=== PATIENT | male | born 2000 | race Caucasian/White ===

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

== ENCOUNTER 2021-09-19 21:16 | Outpatient (REF) | payer MEDICAID, SELFPAY ==
[2021-09-19 21:51] LABS: Abs Immature Grans 0.02 10^3/uL (0.0-0.06); Absolute Basophil Count 0.07 10^3/uL (0.0-0.2); Absolute Eosinophil Count 0.26 10^3/uL (0.0-0.7); Absolute Neutrophil Count 4.33 10^3/uL (1.2-6.7); Basophils % 0.9; Eosinophils % 3.2; HCT 42.1 % (40.0-50.0); HGB 13.8 g/dL (13.5-17.5); Immature Grans % 0.2; Lymphocytes % 32.2; MCH 30.1 pg (27.0-33.0); MCHC 32.8 % (32.0-36.0); MCV 91.7 fL (80-95); MPV 13.5 fL (8.0-11.0); Monocytes % 9.9; Neutrophils % 53.6; Nucleated RBC 0 %; RBC 4.59 10^6/uL (4.36-5.78); RDW 13.1 % (11.8-14.1); WBC 8.08 10^3/uL (4.4-10.8)
[2021-09-19 22:36] LABS: ALT 466 U/L (16-63); AST 243 U/L (15-37); Albumin 3.8 g/dL (3.4-5.0); Alkaline Phosphatase 52 U/L (46-116); Anion Gap 8.2 mmol/L (3-11); BUN 12 mg/dL (7-18); Bilirubin, Total 0.4 mg/dL (0.2-1.0); CO2 28.8 mmol/L (21.0-32.0); Calcium 9.1 mg/dL (8.5-10.1); Calculated LDL 42 mg/dL (<100); Chloride 109 mmol/L (98-107); Cholesterol 102 mg/dL (<200); GGT 209 U/L (15-85); Glucose 113 mg/dL (74-106); HDL Cholesterol 39 mg/dL (40-60); Potassium 4.2 mmol/L (3.5-5.1); Sodium 146 mmol/L (136-145); Total Protein 6.8 g/dL (6.4-8.2); Triglyceride 108 mg/dL (<150)
[2021-09-19 22:42] LABS: Platelet Count 189 10^3/uL (130-400)
[2021-09-21 10:41] LABS: HIV-1/2 Ag & Ab Screen Negative (Negative)
[2021-09-23 09:34] LABS: HBs Antibody, Quant <3.1 mIU/mL (See Note); Hepatitis B Surface Ab Negative (See Note)
[2021-09-23 11:06] LABS: Hepatitis A Antibody IgM Negative (Negative); Hepatitis B Core Antibody Negative (Negative); Hepatitis B surface Ag Negative (Negative); Hepatitis C Ab w Rflx HCV PCR Negative (Negative)
== END 2021-09-19 21:17 | disposition home or self-care (01) ==
LOC: NCHCN 21:16
PROVIDERS: PCP Nurse Practitioner Family; Visit Provider Registered Nurse
DX: F10.10 Alcohol abuse, uncomplicated (principal); E66.9 Obesity, unspecified; Z13.220 Encounter for screening for lipoid disorders; Z11.59 Encounter for screening for other viral diseases; Z11.4 Encounter for screening for human immunodeficiency virus [HIV]; Z01.84 Encounter for antibody response examination; Z00.00 Encounter for general adult medical examination without abnormal findings
CPT/HCPCS: 80053; 80061; 86704; 86706; 86709; 86803; 87340; 87389; 82977; 85025

== ENCOUNTER 2021-10-01 16:32 | Outpatient (REF) | payer MEDICAID, SELFPAY ==
[2021-10-01 21:16] LABS: Abs Immature Grans 0.01 10^3/uL (0.0-0.06); Absolute Basophil Count 0.08 10^3/uL (0.0-0.2); Absolute Lymphocyte Count 2.55 10^3/uL (1.2-3.4); Absolute Monocyte Count 0.61 10^3/uL (0.1-0.8); Absolute Neutrophil Count 4.98 10^3/uL (1.2-6.7); Basophils % 0.9; Eosinophils % 2.4; HCT 49.1 % (40.0-50.0); HGB 15.9 g/dL (13.5-17.5); Immature Grans % 0.1; Lymphocytes % 30.2; MCH 29.6 pg (27.0-33.0); MCHC 32.4 % (32.0-36.0); MCV 91.4 fL (80-95); MPV 12.1 fL (8.0-11.0); Monocytes % 7.2; Neutrophils % 59.2; Nucleated RBC 0 %; Platelet Count 277 10^3/uL (130-400); RBC 5.37 10^6/uL (4.36-5.78); RDW 12.8 % (11.8-14.1); RDW-SD 43.5 fL; WBC 8.43 10^3/uL (4.4-10.8)
== END 2021-10-01 16:33 | disposition home or self-care (01) ==
LOC: LBN 16:32
PROVIDERS: PCP Nurse Practitioner Family
DX: Z79.899 Other long term (current) drug therapy (principal)
CPT/HCPCS: 85025

== ENCOUNTER 2021-10-09 12:00 | Outpatient (REF) | payer MEDICAID, SELFPAY ==
[2021-10-09 22:38] LABS: Abs Immature Grans 0.04 10^3/uL (0.0-0.06); Absolute Basophil Count 0.12 10^3/uL (0.0-0.2); Absolute Eosinophil Count 0.22 10^3/uL (0.0-0.7); Absolute Lymphocyte Count 2.93 10^3/uL (1.2-3.4); Absolute Monocyte Count 0.68 10^3/uL (0.1-0.8); Absolute Neutrophil Count 4.31 10^3/uL (1.2-6.7); Basophils % 1.4; Eosinophils % 2.7; HGB 15.8 g/dL (13.5-17.5); Immature Grans % 0.5; Lymphocytes % 35.3; MCH 29.9 pg (27.0-33.0); MCHC 32.2 % (32.0-36.0); MCV 92.8 fL (80-95); Monocytes % 8.2; Neutrophils % 51.9; Nucleated RBC 0 %; RBC 5.28 10^6/uL (4.36-5.78); RDW 12.8 % (11.8-14.1); RDW-SD 43.7 fL
== END 2021-10-09 12:01 ==
LOC: NCHCN 12:00
PROVIDERS: PCP Nurse Practitioner Family; Visit Provider Registered Nurse
DX: Z51.81 Encounter for therapeutic drug level monitoring
CPT/HCPCS: 85025

== ENCOUNTER 2021-10-16 14:40 | Outpatient (REF) | payer MEDICAID, SELFPAY ==
[2021-10-16 15:03] LABS: Abs Immature Grans 0.04 10^3/uL (0.0-0.06); Absolute Basophil Count 0.07 10^3/uL (0.0-0.2); Absolute Eosinophil Count 0.23 10^3/uL (0.0-0.7); Absolute Lymphocyte Count 3.14 10^3/uL (1.2-3.4); Absolute Monocyte Count 0.89 10^3/uL (0.1-0.8); Absolute Neutrophil Count 3.61 10^3/uL (1.2-6.7); Basophils % 0.9; Eosinophils % 2.9; HCT 44.8 % (40.0-50.0); HGB 14.5 g/dL (13.5-17.5); Immature Grans % 0.5; Lymphocytes % 39.3; MCH 29.5 pg (27.0-33.0); MCHC 32.4 % (32.0-36.0); MCV 91.2 fL (80-95); MPV 11.7 fL (8.0-11.0); Monocytes % 11.2; Neutrophils % 45.2; Nucleated RBC 0 %; Platelet Count 243 10^3/uL (130-400); RBC 4.91 10^6/uL (4.36-5.78); RDW 12.5 % (11.8-14.1); RDW-SD 41.7 fL; WBC 7.98 10^3/uL (4.4-10.8)
== END 2021-10-16 14:41 | disposition home or self-care (01) ==
LOC: LBN 14:40
PROVIDERS: PCP Nurse Practitioner Family; Visit Provider Nurse Practitioner Women's Health
DX: Z79.899 Other long term (current) drug therapy (principal)
CPT/HCPCS: 85025

== ENCOUNTER 2021-10-23 11:18 | Outpatient (REF) | payer MEDICAID, SELFPAY ==
[2021-10-23 13:14] LABS: Abs Immature Grans 0.04 10^3/uL (0.0-0.06); Absolute Basophil Count 0.08 10^3/uL (0.0-0.2); Absolute Eosinophil Count 0.21 10^3/uL (0.0-0.7); Absolute Lymphocyte Count 3.08 10^3/uL (1.2-3.4); Absolute Monocyte Count 1.22 10^3/uL (0.1-0.8); Absolute Neutrophil Count 6.77 10^3/uL (1.2-6.7); Basophils % 0.7; Eosinophils % 1.8; HGB 14.5 g/dL (13.5-17.5); Immature Grans % 0.4; MCH 29.7 pg (27.0-33.0); MCV 90.2 fL (80-95); MPV 11.7 fL (8.0-11.0); Monocytes % 10.7; Neutrophils % 59.4; Nucleated RBC 0 %; Platelet Count 233 10^3/uL (130-400); RBC 4.88 10^6/uL (4.36-5.78); RDW 12.3 % (11.8-14.1); RDW-SD 41.1 fL
== END 2021-10-23 11:19 | disposition home or self-care (01) ==
LOC: LBN 11:18
PROVIDERS: PCP Nurse Practitioner Family; Visit Provider Nurse Practitioner Women's Health
DX: Z79.899 Other long term (current) drug therapy (principal)
CPT/HCPCS: 85025